=== PATIENT | female | born 1990 | race Two or more races ===

== ENCOUNTER 2017-03-08 23:04 | Outpatient (CLI) | payer OTHER | END 2017-03-09 01:29 | disposition home or self-care (01) | LOC: LC 23:04 | PROVIDERS: ATTEND Obstetrics & Gynecology | PROC: 4A1HXCZ Monitoring of Products of Conception, Cardiac Rate, External Approach (ICD-10-PCS; principal; 2017-03-08) | DX: O47.1 False labor at or after 37 completed weeks of gestation (principal); Z3A.39 39 weeks gestation of pregnancy | CPT/HCPCS: 59025 ==